=== PATIENT | female | born 1990 ===

== ENCOUNTER 2021-02-04 07:00 | Day surgery (SDC) | payer OTHER | END 2021-02-04 22:00 | disposition home or self-care (01) | LOC: CIR.AMB 07:00 → EDSTATUS 12:45 → CIR.AMB 22:00 | PROVIDERS: ATTEND Obstetrics & Gynecology Maternal & Fetal Medicine | DX: N75.1 Abscess of Bartholin's gland (principal); Z20.822 Contact with and (suspected) exposure to COVID-19 ==